=== PATIENT | female | born 1990 | race African-American/Black ===

== ENCOUNTER 2020-01-25 20:40 | Observation (INO) | payer OTHER, SELFPAY ==
[2020-01-25 21:07] VITALS: BP 121/70; PULSE 83
[2020-01-25 21:15] VITALS: BMI 27.4
[2020-01-25 21:16] VITALS: BP 128/54; PULSE 91
[2020-01-25 21:31] VITALS: BP 122/56; PULSE 87
[2020-01-25 21:49] LABS: Add Urine Microscopic? YES; Appearance Urine Cloudy (Clear); Bacteria Urine Trace /hpf; Bilirubin Urine Negative (Negative); Blood Urine 2+ (Negative); Calcium Oxalate Crystals Urine Present /hpf; Color Urine Yellow (Yellow); Glucose Urine UA Negative (Negative); Ketones Urine Negative (Negative); Leukocyte Esterase Ur 2+ LEU/UL (NEGATIVE); Mucus Urine Rare /lpf; Nitrate Urine Negative (Negative); Protein Urine 2+ mg/dL (Negative); RBC Urine >75 /hpf (0-2); Squamous Epithelial Cell Urine Occasional /hpf (Few); Urobilinogen Urine Negative mg/dL (<2.0); WBC Urine >75 /hpf (0-3)
--- NOTE | 2020-01-25 22:51 | OBADM ---
This patient, Fátima Mae, admitted to the OB room [facility] Post [facility] for observation. Patient/family oriented to hospital policies and general routines including ID bracelet, bed and alarms, visiting hours, pain management, procedures, bathroom and other care routines, personal items, smoking policy, room service/diet, and visiting hours. Patient/Family are encouraged to report perceived risks to care and to ask questions if they do not understand what they are told or what they should do.
--- NOTE | 2020-01-27 11:24 | PM.OBTRLD ---
OB - Triage/Final Diagnosis Visit Information Reason for evaluation: other (UTI) Evaluation Laboratory results: Laboratory Tests 01/25/20 21:37 Urine Color Yellow Urine Appearance Cloudy H Urine pH 6.0 Ur Specific [place] 1.030 Urine Protein 2+ H Urine Glucose (UA) Negative Urine Ketones Negative Ur Blood (Man) 2+ H Urine Nitrate Negative Urine Bilirubin Negative Urine Urobilinogen Negative Ur Leukocyte Esterase 2+ H Urine RBC >75 H Urine WBC >75 H Ur Squamous Epith Cells Occasional Calcium Oxalate Crystal Present Urine Bacteria Trace Urine Mucus Rare
== END 2020-01-25 22:30 | disposition home or self-care (01) ==
PROVIDERS: Admitting Provider Obstetrics & Gynecology; Visit Provider Obstetrics & Gynecology
DX: O23.42 Unspecified infection of urinary tract in pregnancy, second trimester (principal); Z3A.20 20 weeks gestation of pregnancy
CPT/HCPCS: 81001; 87077; 87086; 87088; 87186; G0378; G0379

== ENCOUNTER 2020-03-01 20:05 | Observation (INO) | payer OTHER, SELFPAY ==
[2020-03-01 20:35] VITALS: BP 117/60; PULSE 85
[2020-03-01 20:52] LABS: Add Urine Microscopic? YES; Appearance Urine Clear (Clear); Bacteria Urine Trace /hpf; Bilirubin Urine Negative (Negative); Blood Urine Negative (Negative); Color Urine Yellow (Yellow); Glucose Urine UA Negative (Negative); Ketones Urine Trace mg/dL (Negative); Leukocyte Esterase Ur 2+ LEU/UL (Negative); Mucus Urine Moderate /lpf; Nitrate Urine Negative (Negative); Protein Urine Negative (Negative); Squamous Epithelial Cell Urine Moderate /hpf (Few); Uric Acid Crystals Urine Present /hpf; Urobilinogen Urine Negative mg/dL (<2.0); WBC Urine 16-20 /hpf
[2020-03-01 20:53] LABS: Specific Grav Ur 1.033 (1.001-1.035)
--- NOTE | 2020-03-08 08:05 | PM.OBTRLD ---
OB - Triage/Final Diagnosis Evaluation Laboratory results: Laboratory Tests 03/01/20 20:43 Urine Color Yellow Urine Appearance Clear Urine pH 5.0 Ur Specific [place] 1.033 Urine Protein Negative Urine Glucose (UA) Negative Urine Ketones Trace Ur Blood (Man) Negative Urine Nitrate Negative Urine Bilirubin Negative Urine Urobilinogen Negative Leukocyte Esterase Rfl 2+ H Urine WBC 16-20 H Ur Squamous Epith Cells Moderate H Uric Acid Crystals Present H Urine Bacteria Trace Hyaline Casts 1-2 Urine Mucus Moderate H Final Diagnosis (1) Cramping affecting , antepartum: Code(s): O26.899 - Other specified related conditions, unspecified trimester; R10.9 - Unspecified abdominal pain Status: Acute
== END 2020-03-01 20:15 | disposition home or self-care (01) ==
PROVIDERS: Admitting Provider Obstetrics & Gynecology; Visit Provider Obstetrics & Gynecology
DX: O26.892 Other specified pregnancy related conditions, second trimester (principal); R10.9 Unspecified abdominal pain; Z3A.25 25 weeks gestation of pregnancy
CPT/HCPCS: 81001; 87086; 87088; G0378; G0379

== ENCOUNTER 2020-05-26 15:22 | Outpatient (RCR) | payer OTHER, SELFPAY ==
[2020-04-26 15:15] VITALS: BP 113/63; PULSE 85
[2020-05-03 16:50] VITALS: PULSE 75
[2020-05-10 15:02] VITALS: BP 109/52; PULSE 88
--- NOTE | ~2020-05-26 | US_ITS ---
EXAMINATION: US OB BPP wo non-stress EXAM DATE: 05/26/2020 15:59 INDICATION: Decreased movement. 3rd trimester. TECHNIQUE: Pelvic obstetrical transabdominal sonogram was performed by a technologist. There are mu ltiple grayscale and Doppler images available for interpretation. There are no earlier studies of th is gestation for comparison. FINDINGS: There is a single fetus identified in vertex presentation with a heart rate of 136 beats pe r minute. The placenta is located in the anterior position. There is no sonographic evidence of retr oplacental hemorrhage identified. BIOPHYSICAL PROFILE (performed by the technologist) breathing (30 sec sustained breathing in 30 minutes): 2 out of 2 movement (3 gross body movements in 30 minutes): 2 out of 2 tone (one episode of uqnjwom-ihofbszxw-cvoigxq limb movement): 2 out of 2 Amniotic fluid pocket (2 cm): 2 out of 2 Total score: 8 out of 8 IMPRESSION: 1. Single fetus with heart rate of 136 bpm. 2. Normal biophysical profile score of 8 out of 8. Reviewed, dictated and finalized at location A.
--- NOTE | ~2020-05-26 | US_ITS ---
US OB BPP wo non-stress DATE: 04/26/2020 15:21 INDICATION: Maternal obesity TECHNIQUE: Real-time imaging, Doppler analysis, color flow imaging COMPARISON: None FINDINGS: Live deleon intrauterine gestation, fetus in vertex presentation. Anterior placenta. Fet al heart rate of 142 bpm. BIOPHYSICAL PROFILE reported by optical technician: breathin out of 2 movement: 2 out of 2 tone: 2 out of 2 Amniotic fluid pocket: 2 out of 2 Total score: 8 out of 8 IMPRESSION: Normal biophysical profile score of 8 out of 8 Reviewed, dictated and finalized at Location A. Reviewed, dictated and finalized at location A.
--- NOTE | ~2020-05-26 | US_ITS ---
EXAMINATION: US OB BPP wo non-stress DATE: 05/10/2020 15:22 INDICATION: Obesity, third trimester TECHNIQUE: Real-time pelvic ultrasound was performed. The interpreting radiologist was not present fo r the study. COMPARISON: 05/03/2020 FINDINGS: There is a single living fetus in vertex presentation. The placenta is anterior. heart rate is 141 beats per minute (bpm). Biophysical profile performed by the technologist: breathing (30 sec sustained breathing in 30 minutes): 2 out of 2 movement (3 gross body movements in 30 minutes): 2 out of 2 tone (one episode of usvarxv-dzeypjtsi-jbxqxbz limb movement): 2 out of 2 Amniotic fluid pocket (2 cm): 2 out of 2 Total score: 8 out of 8 IMPRESSION: 1. Single living fetus in vertex presentation. 2. Biophysical profile 8 out of 8. Reviewed, dictated and finalized at location B.
--- NOTE | ~2020-05-26 | US_ITS ---
US OB BPP wo non-stress DATE: 05/03/2020 16:48 INDICATION: Obesity TECHNIQUE: Real-time imaging and Doppler analysis COMPARISON: 04/26/2020 obstetrical ultrasound with biophysical profile FINDINGS: Live [place] intrauterine gestation, fetus in longitudinal lie, vertex presentation. Feta l heart rate 137 bpm. The placenta is anterior. Subjectively normal amount of amniotic fluid. BIOPHYSICAL PROFILE reported by dental technician apprentice: breathin out of 2 movement: 2 out of 2 tone: 2 out of 2 Amniotic fluid pocket: 2 out of 2 Total score: 8 out of 8 IMPRESSION: Normal biophysical profile score of 8 out of 8 Reviewed, dictated and finalized at Location A. Reviewed, dictated and finalized at location B.
[2020-05-26 15:45] VITALS: BP 128/73
== END 2020-06-06 07:12 | disposition home or self-care (01) ==
LOC: ANHOBOP 15:22
PROVIDERS: Visit Provider Obstetrics & Gynecology
DX: O99.213 Obesity complicating pregnancy, third trimester (principal); E66.9 Obesity, unspecified; Z3A.33 33 weeks gestation of pregnancy; Z3A.34 34 weeks gestation of pregnancy; Z3A.35 35 weeks gestation of pregnancy; O36.8130 Decreased fetal movements, third trimester, not applicable or unspecified; Z3A.37 37 weeks gestation of pregnancy
CPT/HCPCS: 59025; 76819

== ENCOUNTER 2020-06-05 19:52 | Inpatient (IN) | payer OTHER, SELFPAY ==
[2020-06-05] VITALS (37 sets, daily range): BP systolic 60–140; BP diastolic 48–79; PULSE 31–135; TEMP 36.9; O2SAT 99–100; BMI 51.4
--- NOTE | 2020-06-05 19:52 | LDADM ---
This patient, Fátima Mae, was admitted to Labor/Delivery/Recovery 106 on 06/05/20 at 19:52. Plans for labor, pain management and were discussed with patient. Patient/family oriented to hospital policies and general routines including ID bracelet, bed and alarms, visiting hours, pain management, procedures, bathroom and other care routines, personal items, smoking policy, room service/diet and guest tray routines, infant security routines, and visiting hours. Patient/Family are encouraged to report perceived risks to care and to ask questions if they do not understand what they are told or what they should do. See OBIX for further documentation.
[2020-06-05] MEDS: LACTATED RINGERS 1,000 ML 125 ML IV CONT ×3 (21:24→23:59)
--- NOTE | 2020-06-05 21:24 | WPDANESEPPF ---
Anes - Initial Pre Proc Eval Procedure: labor epidural Date/Time: 06/05/20 21:24 Surgeon: Praneeth Koch DO Pre Op Diagnosis: labor pain Pre Op Diagnosis: Contractions Patient Data Age: 29 Gender: F Height: Weight: Last Vital Signs Pulse 91 06/05/20 21:16 BP 140/68 06/05/20 21:16 Allergies Allergy/AdvReac Type Severity Reaction Status Date / Time No Known Allergies Allergy Mild Verified 05/17/11 18:34 Home Medications Medication Instructions Recorded Confirmed Type PNV cmb#95-ferrous fumarate-FA 1 tablet PO DAILY 01/25/20 05/23/20 History [] Patient hx anesthesia problems: none Family hx anesthesia problems: none PMFSH Family History Family History Other No pertinent family history Social History Social History Substance use: never Gender identity (if verbalized by the patient): Female Spiritual care concerns: No Anes - Eval Final PreProcedure Day of Procedure 06/05/20 21:24 Patient weight: obese Heart: regular rate and rhythm Lungs: clear to auscultation and normal air movement Airway: Mallampati scale class II Neurological: alert and oriented ASA classification: II Anesthetic plan: proceed Anesthesia type and monitoring: regional epidural and standard monitoring Informed Consent: The patient's anesthetic plan and its attendant risks and benefits were discussed with the patient/family/POA. Questions were solicited and answers provided to the satisfaction of the patient/family/POA.
[2020-06-05] MEDS: AMPICILLIN 2 GM/NS 100 ML 2 GM/100 ML BAG IVPB (21:25)
--- NOTE | 2020-06-05 21:55 | PM.IMHP ---
H&P: HPI History of Present Illness Date/Time: 06/05/20 21:55 Chief complaint: Contractions Narrative: Fátima Mae is a 29 year old female at 38w5d presenting with contractions. She states she has been janis since 0400 in the morning. painful and regular contractions. Denies leaking of water or any bleeding. Good movement. No questions or concerns today. On initial exam in triage, she was 4 cm and progressed to 6cm. Review of Systems Constitutional: Constitutional: Reports no additional constitutional complaints Cardiovascular: Cardiovascular: Reports no additional cardiovascular complaints Respiratory: Respiratory: Reports no additional respiratory complaints Gastrointestinal: Gastrointestinal: Reports no additional gastrointestinal complaints Genitourinary: Genitourinary: Reports no additional female genitourinary complaints Neurologic: Reports system reviewed and no additional complaints, except as documented Psychiatric: Psychiatric: Reports no additional psychiatric complaints [facility] Past Medical History Medical History (Updated 06/05/20 @ 22:00 by Praneeth Koch DO) Obesity Family History Family History Other No pertinent family history Social History Social History Substance use: never Gender identity (if verbalized by the patient): Female Spiritual care concerns: No Meds Home Medications and Allergies Home Medications Medication Instructions Recorded Confirmed Type PNV cmb#95-ferrous fumarate-FA 1 tablet PO DAILY 01/25/20 05/23/20 History [] Allergies Allergy/AdvReac Type Severity Reaction Status Date / Time No Known Allergies Allergy Mild Verified 05/17/11 18:34 Vital Signs Vital Signs - 24 hr 06/05/20 21:16 06/05/20 21:35 06/05/20 21:41 Pulse Rate 91 96 Blood Pressure 140/68 139/79 Pulse Oximetry 100 06/05/20 21:43 06/05/20 21:45 06/05/20 21:46 Pulse Rate 95 135 H Blood Pressure 124/58 L 108/73 Pulse Oximetry 100 06/05/20 21:47 06/05/20 21:49 06/05/20 21:50 Pulse Rate 99 91 Blood Pressure 135/49 L 135/58 L Pulse Oximetry 99 06/05/20 21:51 06/05/20 21:52 06/05/20 21:54 Pulse Rate 95 101 H Blood Pressure 119/54 L 122/58 L Pulse Oximetry 100 Exam Const: General: comfortable and no acute distress Resp: Effort & Inspection: normal respiratory effort Cardio: Rate: regular rate GI: Other: gravid Skin: General skin exam: normal color Neuro: Speech: normal speech Psych: Mental Status: mental status grossly normal Affect: normal affect Assessment and Plan Assessment and plan (1) Term : Code(s): Z34.90 - Encounter for supervision of normal , unspecified, unspecified trimester Status: Acute (2) Active labor at term: Status: Acute Assessment and Plan: Admit to L&D Pain management - epidural GBS positive - prophylaxis (3) Obesity affecting : Code(s): O99.210 - Obesity complicating , unspecified trimester Status: Acute
[2020-06-05 22:07] LABS: Basophils Percent Auto 0.3 % (0.2-1.2); Eosinophils Absolute Auto 0.2 K/mm3 (0-0.3); Eosinophils Percent Auto 1.8 % (0-4.4); Hematocrit 35.4 % (37.0-47.0); Hemoglobin 11.7 g/dL (12.0-15.0); Immature Granulocyte Absolute 0.07 K/mm3 (0.00-0.031); Immature Granulocyte Percent A 0.6 % (0-0.5); Lymphocytes Absolute Auto 2.14 K/mm3 (0.9-3.2); Lymphocytes Percent Auto 17.2 % (18.3-44.2); Mean Corpuscular HGB Conc 33.1 g/dl (32-36); Mean Corpuscular Hemoglobin 27.1 pg (26-34); Mean Corpuscular Volume 82.1 fl (80-100); Monocytes Absolute Auto 0.8 K/mm3 (0.1-0.6); Monocytes Percent Auto 6.1 % (2.6-8.5); Neutrophils Absolute Auto 9.2 K/mm3 (1.3-6.7); Platelet Count Result 260 k/mm3 (150-375); Red Blood Count 4.31 M/mm3 (4.2-5.4); Red Cell Distribution Width 14.1 % (11.5-14.5); White Blood Count 12.4 K/mm3 (4.5-10.0)
[2020-06-05 23:13] LABS: HIV 1/2 Ab P24 Ag Result Negative (Negative)
[2020-06-06] VITALS (86 sets, daily range): BP systolic 90–137; BP diastolic 44–81; PULSE 62–114; RESP 13–14; TEMP 36.8–37.9; O2SAT 95–100
[2020-06-06] MEDS: AMPICILLIN 1 GM/NS 50 ML 1 GM/50 ML BAG IVPB (01:28)
[2020-06-06] MEDS: FAMOTIDINE 20 MG TABLET PO (01:44)
[2020-06-06] MEDS: OXYTOCIN 30 UNITS/NS 500 ML 30 UNITS/500 ML BAG 999 UNITS IV CONT (03:14)
--- NOTE | 2020-06-06 03:21 | PM.OBPRVD ---
OB - Delivery Note Procedure Delivery date: 06/06/20 Procedure: Normal spontaneous vaginal delivery Narrative: Once she was noted to be complete and ready to push, the labor bed was broken down and legs were placed in stirrups for support. With contractions and maternal efforts, the presented in OA position. The head was delivered. Checked for nuchal cord, no nuchal cord noted. Gentle downward traction was applied and the anterior shoulder delivered without issues, followed by the posterior shoulder and rest of the body. was vigorous and crying, so delayed cord clamping of approximately 1 minute was performed. The cord was clamped and cut. Cord gasses collected. Placenta was delivered spontaneously. IV oxytocin administered and fundal massage applied. Exam was performed to identify any lacerations. No lacerations. Fundal massage applied. Good hemostasis noted. Patient tolerated the procedure well. All instrument and sponge counts were correct at the end of the procedure. Baby Date of : 06/06/20 Time of : 03:07 Weeks of gestation at delivery: 38 Infant gender: Male Weight (pounds): 7 Weight (ounces): 3 presentation: vertex position: Right Occiput Anterior Placenta delivery description: Spontaneous cord vessel description: 3 Vessels score one minute: 9 score five minutes: 9
--- NOTE | 2020-06-06 03:26 | ECG_ITS ---
Measurements Intervals [place] Rate: 80 P: -2 NH: 157 QRS: 44 QRSD: 94 T: 15 QT: 354 QTc: 410 Interpretive Statements SINUS RHYTHM WITH SINUS ARRHYTHMIA NORMAL ECG Electronically Signed On 06-06-2020 7:02:04 CDT by Mickey Alan D.O.
--- NOTE | 2020-06-06 03:30 | PC.NURSE ---
0330 pt heart rate dropping down into the 30's. pt states she feels sleepy but otherwise feels fine. Dr. Koch at beside. 0335 Dr. Koch order EKG.
[2020-06-06 03:36] LABS: Glucose Point of Care 96 (65-105)
[2020-06-06] MEDS: OXYTOCIN 30 UNITS/NS 500 ML 30 UNITS/500 ML BAG 125 UNITS IV CONT (03:46)
[2020-06-06] MEDS: WITCH HAZEL 40 PADS 1 PAD TOPICAL (05:06)
[2020-06-06] MEDS: BENZOCAINE 20% AER SPR (*SP) 56 GM CAN 1 SPRAY TOPICAL (05:07)
[2020-06-06] MEDS: IBUPROFEN 600 MG TABLET PO ×3 (05:07→21:56)
[2020-06-06] MEDS: ACETAMINOPHEN 325 MG TABLET 650 MG PO (06:35)
[2020-06-06 09:51] LABS: Rapid Plasma Reagin Non-Reactive (NonReactive)
[2020-06-06] MEDS: MULTIVIT/MIN/PREN/FOL AC/IRON TABLET 1 TAB PO (10:09)
[2020-06-06] MEDS: TETANUS,DIPHTHERIA,AC PERTUSSIS ADULT (0.5 ML) BOOSTRIX IM (13:11)
[2020-06-07 05:31] LABS: Hematocrit 32.8 % (37.0-47.0); Hemoglobin 10.6 g/dL (12.0-15.0)
[2020-06-07] MEDS: IBUPROFEN 600 MG TABLET PO ×3 (05:32→19:42)
[2020-06-07 07:50] VITALS: BP 114/80; PULSE 72; RESP 18; TEMP 36.2; O2SAT 100
--- NOTE | 2020-06-07 08:04 | WPDANLDPN2 ---
Anes-Prog Note L&D Date/Time: 06/07/20 08:04 Comfortable throughout: labor and delivery Neuraxial method: epidural Epidural/Spinal procedure site: clean & non-tender Neuro status: Neuro function grossly intact. Cardiovascular status: normal Respiratory status: normal Airway patency: baseline Mental status: baseline Post-Op hydration status: normal Vital Signs: Last Vital Signs Temp 36.8 C 06/06/20 19:50 Pulse 62 06/06/20 19:50 Resp 14 06/06/20 19:50 BP 116/68 06/06/20 19:50 Pulse Ox 100 06/06/20 19:50 Post-procedural complaints: none Patient feedback: Patient satisfied with anesthetic care.
[2020-06-07] MEDS: DOCUSATE SODIUM 100 MG CAPSULE PO (09:23)
[2020-06-07] MEDS: MULTIVIT/MIN/PREN/FOL AC/IRON TABLET 1 TAB PO (09:23)
[2020-06-07] MEDS: POLYSACCHARIDE IRON COMPLEX 150 MG CAPSULE PO (09:23)
--- NOTE | 2020-06-07 13:23 | P.PNOB_ITS ---
OB - PN: Subj Subjective Date/time seen: 06/07/20 13:23 PPD# 1 Fátima reports doing well today. She reprots the ibuprofen/tylenol wasn't helping with her pain, now resolved w/ norco. 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 She is tolerating regular diet. She is ambulating. She is voiding and passing flatus. She is breast feeding. She desires her son to get circumcised. She denies N/V, fever, chills, CP, SOB, MATIAS, vision changes, dizziness or palpitations. OB - PN: Obj Data Labs CBC & Chem 7: 06/07/20 05:25 Labs: Laboratory Results - last 24 hr 06/07/20 05:25 Hgb 10.6 L Hct 32.8 L OB - PN A/P Assessment and Plan (1) Normal vaginal delivery: Code(s): O80 - Encounter for full-term uncomplicated delivery Status: Acute Plan day: 1 Plan: routine care and discharge home (tomorrow) Comments: - f/u in [address] Koch Time Spent With Patient Time: Total time spent is greater than 50% in coordination of care (as documented) at patient's floor/unit and/or counseling patient: Review of Systems Review of Systems: All systems reviewed & are unremarkable except as noted in HPI and below (HPI) Exam Const: General: comfortable, no acute distress, alert and awake Orientation /consciousness: patient oriented x3 Resp: Effort & Inspection: normal respiratory effort Auscultation: clear to auscultation bilaterally Cardio: Rate: regular rate GI: Auscultation: normal bowel sounds Other: obese, soft, nontender : Other: fundus firm at umbilicus Psych: Appearance: grossly normal Affect: normal affect Attitude: cooperative Judgement: Good judgement present (Psych)
--- NOTE | 2020-06-07 13:30 | PC.NURSE ---
Consult with pt., offering assist with . Mother reports is eagerly latching without difficulties or discomfort. is behind out required output, requesting mother call out next feeding for observation of feeding. Reviewed feeding cues, frequencies, duration of feedings, feeding elimination flow sheet, and signs of adequate intake. Demonstrated stimulation techniques to wake for feeding. Discussed stimulating while feeding to keep awake and effectively feeding for increased intake and to assist with maintaining deep latch.
--- NOTE | 2020-06-07 13:47 | PC.NURSE ---
Patient instructed on viewing the discharge video Mother & Baby Care, The First Two Weeks . Patient was given the opportunity and encouraged to ask questions. Patient verbalized understanding of information shared and has been given the mother/baby guide for home reference.
--- NOTE | 2020-06-07 15:38 | PC.NURSE ---
Approx. at 1220, called to patient room, mother is requesting FOB be removed from the room. Requested FOB to leave as mother has requested, he asked if he had to leave. Reviewed it is the patients choice. FOB left room voluntarily with no issue.
[2020-06-07 19:45] VITALS: BP 109/58; PULSE 80; RESP 16; TEMP 36.1; O2SAT 100
[2020-06-08] MEDS: IBUPROFEN 600 MG TABLET PO ×2 (01:22→08:46)
--- NOTE | 2020-06-08 08:00 | PC.NURSE ---
PT introductions made and plan of care discussed per post , pain management, breast feeding, daily care activities and pending discharge to home. PT verbalized understanding of such care.
[2020-06-08 08:45] VITALS: PULSE 82; RESP 18; O2SAT 100
[2020-06-08] MEDS: DOCUSATE SODIUM 100 MG CAPSULE PO (08:45)
[2020-06-08] MEDS: MULTIVIT/MIN/PREN/FOL AC/IRON TABLET 1 TAB PO (08:45)
--- NOTE | 2020-06-08 08:58 | PC.NURSE ---
Patient was given the opportunity to view the discharge video Mother & Baby Care, The First Two Weeks and to ask questions. Patient declined viewing the video and has been given the mother/baby guide for home reference.PT is downloading the video to a device to have as a resource at home.
[2020-06-08 09:35] VITALS: BP 133/70; PULSE 82; RESP 18; TEMP 36.3
--- NOTE | 2020-06-08 10:00 | PCDIET ---
Mother is able to independently latch infant with appropriate positioning/alignment. She denies any nipple discomfort, is feeding as required and waking to feed if needed. Infant has had several effective feedings in the past 24 hours, and is currently meeting outcomes for weight, output, jaundice and feeding frequencies. Mother will continue to breast and bottle feed. Stressed to wake to feed every 2-3 hours if and stimulating to keep infant awake and effectively feeding. Reviewed transition to breast milk, signs of adequate intake, and engorgement/relief. Instructed to call ICP if intake/output less than required. Reviewed regular medications mother is taking. Information provided per Leeanne. Reviewed community resources on the [facility] website and in the Mom/Baby guide. Information on outpatient services provided. Mother has no further questions at this time.
--- NOTE | 2020-06-08 13:30 | PC.NURSE ---
PT received discharge instructions per protocol and verbalized understanding of such instructions.
--- NOTE | 2020-06-08 14:03 | PC.NURSE ---
PT discharged to home ambulatory accompanied by both significant other and to waiting car. Follow up appts confirmed
[2020-06-09 11:48] VITALS: BP 128/67; PULSE 83; RESP 20; O2SAT 100
--- NOTE | 2020-06-13 12:05 | PM.OBDSVD ---
DS: Admitting Diagnosis Admitting Diagnosis Admitting Diagnosis: Contractions DS: Discharge Diagnosis Discharge Diagnosis (1) Normal vaginal delivery: Code(s): O80 - Encounter for full-term uncomplicated delivery Status: Acute OB - DS: Summary OB Procedures : None OB Procedures Intrapartum: Spontaneous Vag Delivery OB Procedures: : None Status at Discharge Functional status at discharge: independent ambulation Overall status at discharge: patient is back to baseline Time Spent with Patient Time attestation: Total time spent providing and/or coordinating discharge services: Exam Const: General: comfortable, no acute distress, alert and awake Orientation/consciousness: patient oriented x3 Resp: Effort & Inspection: normal respiratory effort Auscultation: clear to auscultation bilaterally Cardio: Rate: regular rate GI: Auscultation: normal bowel sounds Other: obese, soft, nontender : Other: fundus firm at umbilicus Skin: General skin exam: normal color Neuro: General: patient oriented x3 Speech: normal speech Psych: Appearance: grossly normal Mental Status: mental status grossly normal Affect: normal affect Attitude: cooperative Judgement: Good judgement present (Psych) Discharge Plan Discharge Attending physician on discharge: Brenda Clark Discharging Clinician: Brenda Clark Anticipated Discharge Date/Time: 06/08/20 08:00 Patient Disposition: Home, Self-Care Activity: pelvic rest Diet: regular Discharge Instructions: Education: Mom and Baby Guide Given to: Mother Follow-Up: Call your delivering provider's office for an appointment to be seen in: 1 Week Mom and baby should come to the [facility] for the follow-up appointment. Appointment Date/Time: June 09, 2020 at 11:00 am What to expect at your follow-up visit: Blood Pressure Check Call [phone] if you are unable to keep your appointment time. BREAST CARE: * Wear a snug supportive bra. * For engorgement discomfort: Breast Feeding: * Apply warm moist washcloths * Express milk as needed to relieve engorgement * Wear loose clothing Bottle Feeding: * May apply ice packs * For sore nipples: * Identify correct latch-on * Apply warm moist washcloths before and after nursing * Air dry nipples after nursing * May apply Lansinoh cream to nipples PERINEAL CARE: * Until bleeding stops, use your shaheed bottle after urinating * Change your pad frequently throughout the day * You may take sitz baths several times a day (fill your bathtub with warm water and soak for 20 minutes.) Do NOT bathe in the water * No tub baths until seen by your physician - You may shower ACTIVITY: * Rest as much as possible. * Do not exercise or lift anything heavier than your baby (such as laundry or other children.) * Avoid stairs or driving as much as possible. * Do not put anything into the vagina. No douching, tampons, or sexual activity until seen by physician. NOTIFY PHYSICIAN IF YOU HAVE ANY QUESTIONS OR IF ANY OF THE FOLLOWING SYMPTOMS OCCUR: * If your perineum becomes red, swollen, or more painful than what you have experienced in the hospital. * If your vaginal bleeding becomes foul smelling. * If your vaginal bleeding becomes more heavy than a period or if your bleeding changes from pink to bright red. However, you may pass an occasional walnut-sized clot once or twice for the first week . * If you experience a sharp, shooting pain in you calves. * If you discover a hard, reddened area on your breast or if you experience flu-like symptoms. * If you have a fever of 100.4 or greater DIET: * Eat regular, well-balanced meals. * Drink plenty of fluids daily. If , drink to thirst. Patient Instructions: Antibiotic Form Stand Alone Forms: General Discharge In
== END 2020-06-08 14:03 | disposition home or self-care (01) | DRG 560 ==
LOC: ANHLDR 21:21 → ANHOB2 06-07 13:29 → ANHLDR 06-09 09:47 → ANHOB2 06-09 09:47
PROVIDERS: Admitting Provider Obstetrics & Gynecology; Visit Provider Obstetrics & Gynecology
DX: O99.214 Obesity complicating childbirth (principal); Z37.0 Single live birth; Z3A.38 38 weeks gestation of pregnancy; E66.9 Obesity, unspecified; O36.8330 Maternal care for abnormalities of the fetal heart rate or rhythm, third trimester, not applicable or unspecified; O99.824 Streptococcus B carrier state complicating childbirth
CPT/HCPCS: 36415; 85014; 85018; 85025; 86592; 86703; 86850; 86900; 86901; 90715; 93005; A9270; G0432; J0290; J2590; J2795; J7120

== ENCOUNTER 2025-09-19 10:44 | Emergency (ER) | payer SELFPAY ==
--- NOTE | ~2025-09-19 | XR_ITS ---
Examination: XR knee LT min 4V Clinical History: injury Comparison: None Technique: 4 views left knee Findings/impression: 1. No fracture, dislocation, or effusion left knee. Reviewed, dictated and finalized at location R. LAINT ANALYST
[2025-09-19 10:45] VITALS: BP 132/45; PULSE 79; RESP 16; TEMP 36.9; O2SAT 100
--- OUTSIDE RECORDS SUMMARY | 2025-09-19 10:47 | XMS_ITS | Data Portability ---
Author Organization [facility] Address [address] [place] [address] Assessment No assessment recorded. Plan of Treatment Reminders Order Date Submit Date Provider Last Modified By Organization Details Last Modified Time Details Appointments None recorde d. Lab cytolog y report, thin prep, smear or scrapin g, cervica l or vaginal - brush and broom 2024 025 [facility], [address], [place], [address], 5 16:23:13 lh + FSH, serum 2018 019 [facility] [facility] (Centralized Electronic Ordering - All Locations), Patient Can Go To The Location Of Their Choice, 05:08:56 dhea-granados lfate, serum 2018 019 [employer] [facility] (Centralized [facility] Ordering - All Locations), Patient Can Go To The Location Of Their Choice, 05:08:28 testost erone, total, serum 2018 019 [employer] [facility] (Centralized Electronic Ordering - All Locations), Patient Can Go To The Location Of Their Choice, 05:08:00 CMP, serum or plasma 2018 019 [employer] [facility] (Centralized Electronic Ordering - All Locations), Patient Can Go To The Location Of Their Choice, 05:10:45 lipid panel, serum 2018 [facility] (Centralized Electronic Ordering - All Locations), Patient Can Go To The Location Of Their Choice, 05:10:05 TSH, ultra-s ensitiv e, serum 2018 [facility], [address] [facility] [facility], [place], [address], 05:07:06 HbA1c (hemogl obin A1c), blood 2018 [facility], [address] [facility], [address], [place], [address], 05:09:26 pregnan cy test, urine [facility], Internal Use Only DO Not Attach Compendium DO Not Attach Compendium, Do Not Delete/merge, 17:11:12 urinaly sis, dipstic k 2018 [facility], Internal Use Only DO Not Attach Compendium DO Not Attach Compendium, Do Not Delete/merge, 17:11:12 bacteri al vaginos is panel, vaginal 2018 [employer] [facility] (Centralized Electronic Ordering - All Locations), Patient Can Go To The Location Of Their Choice, 16:08:29 culture , vaginal /rectal , strepto coccus group B 2018 [employer] [facility] (Centralized Electronic Ordering - All Locations), Patient Can Go To The Location Of Their Choice, 16:08:32 CT + NG + TV, DNA, urine/s wab 2018 [employer] [facility], [address], [place], [address], 9 20:08:06 bacteri al vaginos is + vaginit is panel, vaginal - Z11.3, Z20.0 2017 018 [facility], [address] [facility], [address], [place], [address], 8 14:13:16 HSV (1+2) DNA, qual, PCR, unspeci fied specime n - Z11.3, Z20.2 2017 018 [facility], [address] [facility], [address], [place], [address], 8 14:13:16 culture , vaginal /rectal , strepto coccus group B - Z11.3, Z20.2 2017 018 [facility], [address] [place] [address], [address], [place], [address], 8 14:13:17 pregnan cy test, urine 2017 018 [facility] In-Office Order, Internal Use Only DO Not Attach Compendium DO Not Attach Compendium, Do Not Delete/merge, [id number] 8 14:48:58 urinaly sis, dipstic k 2017 018 [facility] In-Office Order, Internal Use Only DO Not Attach Compendium DO Not Attach Compendium, Do Not Delete/merge, [id number] 8 14:48:58 Referral None recorde d. Procedures None recorde d. Surgeries tubal ligatio n (SURG) 2017 018 [email or web address] Not available 8 16:17:12 Imaging None recorde d. Medication Orders metform in 500 mg tablet 2018 019 [facility], [address] [place], [address], 5 14:32:15 multivi tamin tablet 2018 019 [facility], [address] [place] [address], [address], 5 14:32:34 calcium 600 mg (as carbona te)-vit sevilla D3 20 mcg (800 unit) tablet 2018 019 [facility], [address] [place] [address], [address], 5 14:26:52 L norgest /E estradi ol-E estrad 0.15 mg-30 mcg (84)/10 mcg(7) tabs,3m os 2018 019 [facility], [address] [place] [address], [address], 5 14:32:11 Lo Loestri n Fe 1 mg-10 mcg (24)/10 mcg (2) tablet 2018 019 [facility], [address] [place] [address], [address], 9 10:44:38 calcium 600 mg (as carbona te)-vit sevilla D3 20 mcg (800 unit) tablet 2018 019 [facility], [address] [place] [address], [address], 5 14:26:52 multivi tamin tablet [address] [place] [address] Pharmacy [address], [address] [place] [address], [address], 5 14:32:34 calcium 600 mg (as carbona te)-vit sevilla D3 20 mcg (800 unit) tablet 2017 018 [facility], [address] [place] [address], [address], 5 14:26:52 multivi tamin tablet 2017 018 [facility], [address] [place] [address], [address], 5 14:32:34 flucona zole 150 mg tablet 2017 018 [facility], [address] [place] [address], [address], 9 16:16:03 ceftria xone 500 mg solutio n for injecti on 2017 018 [facility] Not available 9 16:15:56 metroni dazole 500 mg tablet 2017 [facility], [address] [place] [address], [address], 5 14:32:16 azithro mycin 250 mg tablet 2017 018 [facility], [address] [place] [address], [address], 9 16:15:52 Patient TargetsNo targets recorded. Patient Instructions Encounter Date Encounter Id Patient Instructions Last Modified By Organization Details Last Modified Time 06/19/2018 [id number] bacterial vaginosis: care instructions mwasserman Not available 06/19/2018 18:46:03 vaginal yeast infection: care instructions mwasserman Not available 06/19/2018 18:46:03 10/15/2018 [id number] IUD removal: care instructions mwasserman Not available 10/15/2018 16:54:02 08/26/2019 [id number] When You Want to Lose Weight: Care Instructions mwasserman Not available 08/26/2019 22:26:55 Reason for Referral None Reported. Results Created Date Observation Date Name Description Value Unit Range Abnormal Flag Note LastModifiedBy Organization Detail LastModifiedTime 08/26/2008/26/2019 urina lysis , dipst ick Leukocytes Small Not Available In-Offi ce Order Internal Use Only DO Not Attach Compendium DO Not Attach Compendium, Do Not Delete/merge, [id number] 08/26/2019 11:49:14 08/26/20 19 08/26/2019 urina lysis , dipst ick Nitrite negati ve Not Available In-Office Order Internal Use Only DO Not Attach Compendium DO Not Attach Compendium, Do Not Delete/merge, [id number] 08/26/2019 11:49:14 08/26/20 19 08/26/2019 urina lysis , dipst ick Urobilinogen .2 Not Available In-Of fice Order Internal Use Only DO Not Attach Compendium DO Not Attach Compendium, Do Not Delete/merge, [id number] 08/26/2019 11:49:14 08/26/20 19 08/26/2019 urina lysis , dipst ick Protein Negati ve Not Available In-Office Order Internal Use Only DO Not Attach Compendium DO Not Attach Compendium, Do Not Delete/merge, [id number] 08/26/2019 11:49:14 08/26/20 19 08/26/2019 urina lysis , dipst ick pH 6.0 Not Available In-Office Order Internal Use Only DO Not Attach Compendium DO Not Attach Compendium, Do Not Delete/merge, [id number] 08/26/2019 11:49:14 08/26/20 19 08/26/2019 urina lysis , dipst ick Blood Negati ve Not Available In-Office Order Internal Use Only DO Not Attach Compendium DO Not Attach Compendium, Do Not Delete/merge, [id number] 08/26/2019 11:49:14 08/26/20 19 08/26/2019 urina lysis , dipst ick Specific [place] 1.030 Not Available In-Off ice Order Internal Use Only DO Not Attach Compendium DO Not Attach Compendium, Do Not Delete/merge, [id number] 08/26/2019 11:49:14 08/26/20 19 08/26/2019 urina lysis , dipst ick Ketone Negati ve Not Available In-Office Order Internal Use Only DO Not Attach Compendium DO Not Attach Compendium, Do Not Delete/merge, [id number] 08/26/2019 11:49:14 08/26/20 19 08/26/2019 urina lysis , dipst ick Bilirubin Small Not Available In-Offic e Order Internal Use Only DO Not Attach Compendium DO Not Attach Compendium, Do Not Delete/merge, [id number] 08/26/2019 11:49:14 08/26/20 19 08/26/2019 urina lysis , dipst ick Glucose Negati ve Not Available In-Office Order Internal Use Only DO Not Attach Compendium DO Not Attach Compendium, Do Not Delete/merge, [id number] 08/26/2019 11:49:14 04/24/20 18 04/24/2018 urina lysis , dipst ick Leukocytes Modera te Not Available In-Office Order Internal Use Only DO Not Attach Compendium DO Not Attach Compendium, Do Not Delete/merge, [facility] 04/24/2018 11:49:37 04/24/20 18 04/24/2018 urina lysis , dipst ick Nitrite negati ve Not Available In-Office Order Internal Use Only DO Not Attach Compendium DO Not Attach Compendium, Do Not Delete/merge, [facility] 04/24/2018 11:49:37 04/24/20 18 04/24/2018 urina lysis , dipst ick Urobilinogen .2 Not Available In-Of fice Order Internal Use Only DO Not Attach Compendium DO Not Attach Compendium, Do Not Delete/merge, [id number] 04/24/2018 11:49:37 04/24/20 18 04/24/2018 urina lysis , dipst ick Protein 30 Not Available In-Office Order Internal Use Only DO Not Attach Compendium DO Not Attach Compendium, Do Not Delete/merge, [id number] 04/24/2018 11:49:37 04/24/20 18 04/24/2018 urina lysis , dipst ick pH 5.5 Not Available In-Office Order Internal Use Only DO Not Attach Compendium DO Not Attach Compendium, Do Not Delete/merge, [id number] 04/24/2018 11:49:37 04/24/20 18 04/24/2018 urina lysis , dipst ick Blood Large Not Available In-Office Order Internal Use Only DO Not Attach Compendium DO Not Attach Compendium, Do Not Delete/merge, [id number] 04/24/2018 11:49:37 04/24/20 18 04/24/2018 urina lysis , dipst ick Specific [place] 1.030 Not Available In-Off ice Order Internal Use Only DO Not Attach Compendium DO Not Attach Compendium, Do Not Delete/merge, [id number] 04/24/2018 11:49:37 04/24/20 18 04/24/2018 urina lysis , dipst ick Ketone Negati ve Not Available In-Office Order Internal Use Only DO Not Attach Compendium DO Not Attach Compendium, Do Not Delete/merge, [id number] 04/24/2018 11:49:37 04/24/20 18 04/24/2018 urina lysis , dipst ick Bilirubin Small Not Available In-Offic e Order Internal Use Only DO Not Attach Compendium DO Not Attach Compendium, Do Not Delete/merge, [id number] 04/24/2018 11:49:37 04/24/20 18 04/24/2018 urina lysis , dipst ick Glucose Negati ve Not Available In-Office Order Internal Use Only DO Not Attach Compendium DO Not Attach Compendium, Do Not Delete/merge, [id number] 04/24/2018 11:49:37 04/24/20 18 04/24/2018 pregn ann-marie test, urine HCG negati ve Not Available In-Office Order Internal Use Only DO Not Attach Compendium DO Not Attach Compendium, Do Not Delete/merge, [id number] 04/24/2018 11:49:24 06/19/20 18 06/23/2018 bacte rial vagin osis + vagin itis panel , vagin al trich vag by RAFFI NEGATI VE negati ve Not Available [facility] ([facility]) [address] [facility], [place], [address], 06/25/2018 14:13:16 06/19/20 18 06/23/2018 bacte rial vagin osis + vagin itis panel , vagin al chlamydia trachomatis, RAFFI POSITI VE negati ve abnormal Not Available [facility] ([facility]) [address] [facility], [place], [address], 06/25/2018 14:13:16 06/19/20 18 06/23/2018 bacte rial vagin osis + vagin itis panel , vagin al neisseria gonorrhoeae, RAFFI NEGATI VE negati ve Not Available [facility] ([facility]) [address] [place], [address], 06/25/2018 14:13:16 06/19/20 18 06/25/2018 bacte rial vagin osis + vagin itis panel , vagin al atopobium vaginae HIGH - 2 score abnormal Not Available [facility] ([facility]) [address] [facility], [place], [address], 06/25/2018 14:13:16 06/19/20 18 06/25/2018 bacte rial vagin osis + vagin itis panel , vagin al bvab 2 HIGH - 2 score abnormal Not Available [facility] ([facility]) [address] [place], [address], 06/25/2018 14:13:16 06/19/20 18 06/25/2018 bacte rial vagin osis + vagin itis panel , vagin al megasphaera 1 HIGH - 2 score abnormal Calcu late total score by ventura infante the 3 indiv idual bacte rial vagin osis (BV) marke r score s toget her. Total score is inter prete d as follo ws: Total score 0-1: Indic ates the absen ce of BV. Total score 2: Indet ermin ate for BV. Addit ional clini viraj data shoul d be evalu ated to estab true a diagn osis. Total score 3-6: Indic ates the prese nce of BV. This test was devel oped and its perfo rmanc e blas cteri stics deter mined by [facility]. It has not been clear ed or appro azeem by the Food and Drug Admin istra tion. The FDA has deter mined that such clear ance or appro ezio is not neces maile. Not Available [facility] ([facility]) [address] [place], [address], 06/25/2018 14:13:16 06/19/20 18 06/25/2018 bacte rial vagin osis + vagin itis panel , vagin al sarah albicans, RAFFI NEGATI VE negati ve Not Available [facility] ([facility]) [address] [place], [address], 06/25/2018 14:13:16 06/19/20 18 06/25/2018 bacte rial vagin osis + vagin itis panel , vagin al sarah glabrata, RAFFI NEGATI VE negati ve This test was devel oped and its perfo rmanc e blas cteri stics deter mined by [facility]. It has not been clear ed or appro azeem by the Food and Drug Admin istra tion. The FDA has deter mined that such clear ance or appro ezio is not neces maile. Not Available [facility] ([facility]) [address] [facility], [place], [address], 06/25/2018 14:13:16 06/19/20 18 06/25/2018 HSV (1+2) DNA, qual, PCR, unspe cifie d speci men hsv 1 RAFFI NEGATI VE negati ve Not Available [facility] ([facility]) [address] [place], [address], 06/25/2018 14:13:16 06/19/2006/25/2018 HSV (1+2) DNA, qual, PCR, unspe cifie d speci men hsv 2 RAFFI NEGATI VE negati ve Not Available [facility] ([facility]) [address] [place], [address], 06/25/2018 14:13:16 06/19/20 18 06/21/2018 cultu re, vagin al/re ctal, strep tococ cus group B strep gp B RAFFI POSITI VE negati ve abnormal Cente rs for Disea se Contr ol and Preve ntion (CDC) and Ameri can Congr ess of Obste trici ans and Gynec ologi sts (ACOG ) guide lines for preve ntion of perin atal group B strep tococ viraj (GBS) disea se speci fy co-co llect ion of a vagin al and recta l swab speci men to maxim ize sensi tivit y of GBS detec tion. Per the CDC and ACOG, swabb ing both the lower vagin a and rectu m subst antia lly incre ases the yield of detec tion leona red with sampl ing the vagin a alone . Penic illin G, ampic illin , or cefaz ana are indic ated for intra partu m proph ylaxi s of perin atal GBS colon izati on. Refle x susce ptibi lity testi ng shoul d be perfo rmed prior to use of clind amyci n only on GBS isola phong from penic illin -donovan rgic women who are consi dered a high risk for anaph ylaxi s. Treat ment with vanco mycin witho ut addit ional testi ng is warra nted if resis tance to clind amyci n is noted . Not Available [facility] ([facility]) [address] [place], [address], 06/25/2018 14:13:17 10/15/19 19 10/16/2018 CT + NG + TV, DNA, urine /swab chlamydia by RAFFI NEGATI VE negati ve Not Available [facility] ([facility]) [address] [place], [address], 10/16/2018 20:08:06 10/15/1910/16/2018 CT + NG + TV, DNA, urine /swab gonococcus by RAFFI NEGATI VE negati ve Not Available [facility] ([facility]) [address] [place], [address], 10/16/2018 20:08:06 10/15/19 19 10/16/2018 CT + NG + TV, DNA, urine /swab trich vag by RAFFI NEGATI VE negati ve Not Available [facility] ([facility]) [address] [facility] [place], [address], 10/16/2018 20:08:06 08/26/2008/27/2019 CMP, serum or plasm a glucose 75 mg/dL 65-99 Not Available [facility] ([facility]) [address] [facility] [place], [address], 08/27/2019 10:37:36 08/26/2008/27/2019 CMP, serum or plasm a BUN 11 mg/dL 6-20 Not Available [facility] ([facility]) [address] [facility] [place], [address], 08/27/2019 10:37:36 08/26/2008/27/2019 CMP, serum or plasm a creatinine 0.67 mg/dL 0.57-1 .00 Not Available [facility] ([facility]) [address] [facility] [place], [address], 08/27/2019 10:37:36 08/26/20 19 08/27/2019 CMP, serum or plasm a eGFR if nonafricn AM 121 mL/mi n/1.7 3 >59 Not Available [facility] ([facility]) [address] [facility] [place], [address], 08/27/2019 10:37:36 08/26/2008/27/2019 CMP, serum or plasm a eGFR if africn AM 139 mL/mi n/1.7 3 >59 Not Available [facility] ([facility]) [address] [facility] [place], [address], 08/27/2019 10:37:36 08/26/2008/27/2019 CMP, serum or plasm a BUN/creatini ne ratio 16 9-23 Not Available [facility] ([facility]) [address] [facility] [place], [address], 08/27/2019 10:37:36 11/13/20 19 08/27/2019 CMP, serum or plasm a sodium 142 mmol/ L 134-14 4 Not Available [facility] ([facility]) [address] [place], [address], 08/27/2019 10:37:36 08/26/20 19 08/27/2019 CMP, serum or plasm a potassium 4.0 mmol/ L 3.5-5. 2 Not Available [facility] ([facility]) [address] [place], [address], 08/27/2019 10:37:36 08/26/20 19 08/27/2019 CMP, serum or plasm a chloride 103 mmol/ L 96-106 Not Available [facility] ([facility]) [address] [place], [address], 08/27/2019 10:37:36 08/26/20 19 08/27/2019 CMP, serum or plasm a carbon dioxide, total 23 mmol/ L 20-29 Not Available [facility] ([facility]) [address] [place], [address], 08/27/2019 10:37:36 08/26/20 19 08/27/2019 CMP, serum or plasm a calcium 9.8 mg/dL 8.7-10 .2 Not Available [facility] ([facility]) [address] [place], [address], 08/27/2019 10:37:36 08/26/2008/27/2019 CMP, serum or plasm a protein, total 7.3 g/dL 6.0-8. 5 Not Available [facility] ([facility]) [address] [place], [address], 08/27/2019 10:37:36 08/26/2008/27/2019 CMP, serum or plasm a albumin 4.5 g/dL 3.5-5. 5 Not Available [facility] ([facility]) [address] [place], [address], 08/27/2019 10:37:36 08/26/20 19 08/27/2019 CMP, serum or plasm a globulin, total 2.8 g/dL 1.5-4. 5 Not Available [facility] ([facility]) [address] [facility] [place], [address], 08/27/2019 10:37:36 08/26/20 19 08/27/2019 CMP, serum or plasm a A/G ratio 1.6 1.2-2. 2 Not Available [facility] ([facility]) [address] [facility] [place], [address], 08/27/2019 10:37:36 08/26/20 19 08/27/2019 CMP, serum or plasm a bilirubin, total 0.3 mg/dL 0.0-1. 2 Not Available [facility] ([facility]) [address] [place], [address], 08/27/2019 10:37:36 08/26/20 19 08/27/2019 CMP, serum or plasm a alkaline phosphatase 75 IU/L 39-117 Not Available [facility]) [address] [place], [address], 08/27/2019 10:37:36 08/26/20 19 08/27/2019 CMP, serum or plasm a AST (SGOT) 14 IU/L 0-40 Not Available [facility] ([facility]) [address] [place], [address], 08/27/2019 10:37:36 08/26/20 19 08/27/2019 CMP, serum or plasm a ALT (SGPT) 15 IU/L 0-32 Not Available [facility] ([facility]) [address] [place], [address], 08/27/2019 10:37:36 08/26/20 19 08/27/2019 lipid panel , serum cholesterol, total 216 mg/dL 100-19 9 above high normal Not Available [facility] ([facility]) [address] [facility], [place], [address], 08/27/2019 10:37:37 08/26/20 19 08/27/2019 lipid panel , serum triglyceride s 74 mg/dL 0-149 Not Available [facility] ([facility]) [address] [facility] [place], [address], 08/27/2019 10:37:37 08/26/20 19 08/27/2019 lipid panel , serum HDL cholesterol 98 mg/dL >39 Not Available [facility] ([facility]) [address] [facility] [place], [address], 08/27/2019 10:37:37 08/26/20 19 08/27/2019 lipid panel , serum VLDL cholesterol viraj 15 mg/dL 5-40 Not Available [facility] ([facility]) [address] [place], [address], 08/27/2019 10:37:37 08/26/20 19 08/27/2019 lipid panel , serum LDL cholesterol calc 103 mg/dL 0-99 above high normal Not Available [facility] ([facility]) [address] [place], [address], 08/27/2019 10:37:37 08/26/20 19 08/27/2019 lipid panel , serum comment: 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 2 LDL/H DL Ratio Men Women 1/2 Avg.R isk 1.0 1.5 Avg.R isk 3.6 3.2 2X Avg.R isk 6.2 5.0 3X Avg.R isk 8.0 6.1 Not Available [facility] ([facility]) [address] [place], [address], 08/27/2019 10:37:37 08/26/2008/27/2019 lh + FSH, serum LH 9.1 mIU/m L Adult Femal e: Folli cular phase 2.4 - 12.6 Ovula tion phase 14.0 - 95.6 Lutea l phase 1.0 - 11.4 Postm enopa usal 7.7 - 58.5 Not Available [facility] ([facility]) [address] [place], [address], 08/27/2019 10:37:38 08/26/2008/27/2019 lh + FSH, serum FSH 5.7 mIU/m L Adult Femal e: Folli cular phase 3.5 - 12.5 Ovula tion phase 4.7 - 21.5 Lutea l phase 1.7 - 7.7 Postm enopa usal 25.8 - 134.8 Not Available [facility] ([facility]) [address] [place], [address], 08/27/2019 10:37:38 08/26/2008/27/2019 HbA1c (hemo globi n A1c), blood hemoglobin A1C 5.4 % 4.8-5. 6 Predi abete s: 5.7 - 6.4 Diabe phong: >6.4 Glyce abdirashid contr ol for adult s with diabe phong: <7.0 Not Available [facility] ([facility]) [address] [place], [address], 08/27/2019 10:37:38 08/26/2008/27/2019 dhea- sulfa te, serum DHEA-sulfate 306.4 ug/dL 84.8-3 78.0 Not Available [facility] ([facility]) [address] [place], [address], 08/27/2019 10:37:39 08/26/2008/27/2019 testo stero ne, total , serum testosterone , serum 42 NG/dL 8-48 Not Available [facility] ([facility]) [address] [place], [address], 08/27/2019 10:37:39 08/26/2008/27/2019 TSH, ultra -sens itive , serum TSH 2.280 uIU/m L 0.450- 4.500 Not Available [facility] ([facility]) [address] [place], [address], 08/27/2019 10:37:40 08/26/20 19 08/28/2019 bacte rial vagin osis panel , vagin al atopobium vaginae High - 2 score abnormal Not Available [facility] ([facility]) [address] [place], [address], 08/29/2019 16:08:29 08/26/20 19 08/28/2019 bacte rial vagin osis panel , vagin al bvab 2 High - 2 score abnormal Not Available [facility] ([facility]) [address] [place], [address], 08/29/2019 16:08:29 08/26/2008/28/2019 bacte rial vagin osis panel , vagin al megasphaera 1 High - 2 score abnormal Calcu late total score by ventura g the 3 indiv idual bacte rial vagin osis (BV) marke r score s toget her. Total score is inter prete d as follo ws: Total score 0-1: Indic ates the absen ce of BV. Total score 2: Indet ermin ate for BV. Addit ional clini viraj data shoul d be evalu ated to estab true a diagn osis. Total score 3-6: Indic ates the prese nce of BV. This test was devel oped and its perfo rmanc e blas cteri stics deter mined by [facility]. It has not been clear ed or appro azeem by the Food and Drug Admin istra tion. The FDA has deter mined that such clear ance or appro ezio is not neces maile. Not Available [facility] ([facility]) [address] [place], [address], 08/29/2019 16:08:29 08/26/20 19 08/28/2019 bacte rial vagin osis panel , vagin al sarah albicans, RAFFI Negati ve negati ve Not Available [facility] ([facility]) [address] [facility], [place], [address], 08/29/2019 16:08:29 08/26/20 19 08/28/2019 bacte rial vagin osis panel , vagin al sarah glabrata, RAFFI Negati ve negati ve This test was [facility] and its perfo rmanc e blas cteri stics deter mined by [facility]. It has not been clear ed or appro azeem by the Food and Drug Admin istra tion. The FDA has deter mined that such clear ance or appro ezio is not neces maile. Not Available [facility] ([facility]) [address] [facility], [place], [address], 08/29/2019 16:08:29 08/26/20 19 08/28/2019 bacte rial vagin osis panel , vagin al chlamydia trachomatis, RAFFI Negati ve negati ve Not Available [facility] ([facility]) [address] [place], [address], 08/29/2019 16:08:29 08/26/20 19 08/28/2019 bacte rial vagin osis panel , vagin al neisseria gonorrhoeae, RAFFI Negati ve negati ve Not Available [facility] ([facility]) [address] [place], [address], 08/29/2019 16:08:29 08/26/20 19 08/29/2019 bacte rial vagin osis panel , vagin al trich vag by RAFFI Positi ve negati ve abnormal Not Available [facility] ([facility]) [address] [place], [address], 08/29/2019 16:08:29 08/26/20 19 08/29/2019 bacte rial vagin osis panel , vagin al hsv 1 RAFFI Negati ve negati ve Not Available [facility] ([facility]) [address] [facility], [place], [address], 08/29/2019 16:08:29 08/26/20 19 08/29/2019 bacte rial vagin osis panel , vagin al hsv 2 RAFFI Negati ve negati ve Not Available [facility] ([facility]) [address] [facility], [place], [address], 08/29/2019 16:08:29 08/26/20 19 08/28/2019 cultu re, vagin al/re ctal, strep tococ cus group B strep gp B RAFFI Positi ve negati ve abnormal Cente rs for Disea se Contr ol and Preve ntion (CDC) and [place]eri can Congr ess of Obste trici ans and Gynec ologi sts (ACOG ) guide lines for preve ntion of perin atal group B strep tococ viraj (GBS) disea se speci fy co-co llect ion of a vagin al and recta l swab speci men to maxim ize sensi tivit y of GBS detec tion. Per the CDC and ACOG, swabb ing both the lower vagin a and rectu m subst antia lly incre ases the yield of detec tion leona red with sampl ing the vagin a alone . Penic illin G, ampic illin , or cefaz ana are indic ated for intra partu m proph ylaxi s of perin atal GBS colon izati on. Refle x susce ptibi lity testi ng shoul d be perfo rmed prior to use of clind amyci n only on GBS isola phong from penic illin -donovan rgic women who are consi dered a high risk for anaph ylaxi s. Treat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
--- OUTSIDE RECORDS SUMMARY | 2025-09-19 10:47 | XMS_ITS | Clinical Summary ---
Author Organization [facility] [employer] [facility] lin Address [address] [place] [address] Care Team Providers Care Cognos Architect Name Role Phone Unavailable Primary Care Provider Unavailabl e Social History Tobacco Use Types Packs/Day Years Used Date Smoking Tobacco: Never Assessed Comments Unknown Sex and Gender Information Value Date Recorded Sex Assigned at Not on file Legal Sex Female 1:42 PM EST Gender Identity Not on file Sexual Orientation Not on file Plan of Treatment Health Maintenance Due Date Last Done Comments Depression: Screening Annual ly using PHQ-2/9 in Adults 18 yrs or above (or HM Modifier)([facility]) 2009 Hepatitis C Virus Infection in Adolescents and Adults: Screening (or Modifier) ([facility]) 2009 SDOH Screening Reminder: Linda kaykaylly for all adults ([facility]) 2009 Tobacco Smoking Cessation: i n Adults excluding Women: Behavioral and Pharmacotherapy Interventions ([facility]) 2009 DTaP/Tdap/Td Vaccines ([facility]) (1 - Tdap) 2010 Cervical Cancer Screenin 1-65 yrs of age (or Modifier) 2012 Cervical Cancer Screening: P ap every 3 yrs pts age 21-65 2012 Cervical Cancer: Pap Screeni ng with Modifier timing ([facility]) 2012 Cervical Cancer: hrHPV alone or with cotesting Pap for Pts 30-65yrs screening every 5yrs ([facility]) 2012 Flu Vaccination: Yearly for ages 18mos through 64 years (or Modifier)([facility]) 05/14/2025 COVID-19 Vaccine Screening: Initial Series and Booster Status ([facility]) (2024- season) 2025 Zoster/Shingles Vaccine Seri es Screening: Adults aged 18+ yrs (or HM Modifiers)([facility]) (1 of 2) 2041 Pneumococcal Vaccination Scr eening: Pts 0-19 & 19-49 yrs of age ([facility]) Aged Out No longer eligible based on patient's age to complete this topic Medical Devices Not on file Insurance [facility]
--- OUTSIDE RECORDS SUMMARY | 2025-09-19 10:47 | XMS_ITS | Clinical Summary ---
Author Organization [facility] Address [address] [place] [address] Care Team Providers Care Battery Assembler Plastic Name Role Phone Jacquelyn Medellin MD Primary Care Provider [phone] Source Comments [facility],non-owned Affiliates and Associated Physician Practices is amultiple site organization consisting of ambulatory clinics and hospital sitesin [place], [place], [place] and [place]. This disclosure is being madepursuant to the Care Everywhere program and may not contain all information available regarding this patient. Last updated 18.[facility] Allergies No known active allergies Medications * Be aware that medications may not be up to date on this document. Alwaysverify current medications with the patient. cyclobenzaprine (FLEXERIL) 10 MG tablet Take 1 Tab by mouth 3 times daily as needed for Muscle Spasms 15 Tab 01/07/2017 Active naproxen (NAPROSYN) 500 MG tablet Take 1 Tab by mouth 2 times daily as needed for Pain 20 Tab 01/07/2017 Active Active Problems Problem Noted Date Diagnosed Date Preventative health care 12/21/2020 Social History Tobacco Use Types Packs/Day Years Used Date Smoking Tobacco: Never Assessed Comments Unknown Sex and Gender Information Value Date Recorded Sex Assigned at Not on file Legal Sex Female 11:37 PM CDT Gender Identity Not on file Sexual Orientation Not on file Last Filed Vital Signs Vital Sign Reading Time Taken Comments Blood Pressure 136/82 01/07/2017 1:35 AM CDT Pulse 88 01/07/2017 1:35 AM CDT Temperature 36.8 C (98.3 F) 01/06/2017 11:42 PM CDT Respiratory Rate 16 01/07/2017 1:35 AM CDT Oxygen Saturation 97% 01/07/2017 1:35 AM CDT Inhaled Oxygen Concentration - - Weight 136.1 kg (300 lb) 01/06/2017 11:42 PM CDT Height 170.2 cm (5' 7) 01/06/2017 11:42 PM CDT Body Mass Index 46.99 01/06/2017 11:42 PM CDT Plan of Treatment Health Maintenance Due Date Last Done Comments HIV SCREENING 2006 HEPATITIS C SCREENING 09/18/2009 DTAP/TDAP/TD VACCINES (1 - Tdap) 2010 HEPATITIS B VACCINE (1 of 3 - 19+ 3-dose series) 2010 HPV VACCINE (1 - 3-dose SCDM series) 2018 DEPRESSION SCREENING 10/14/2024 COVID-19 VACCINE (1 - 2024-2 6 season) 2025 INFLUENZA VACCINE (#1) 2025 ZOSTER VACCINE (1 of 2) 2041 HIB VACCINE Aged Out No longer eligi ble based on patient's age to complete this topic MENINGOCOCCAL (Group B) VACC INE SHARED DECISION-MAKING Aged Out No longer eligibl e based on patient's age to complete this topic MENINGOCOCCAL GROUPS A/C/Y/W VACCINE Aged Out No longer eligible b ased on patient's age to complete this topic PNEUMOCOCCAL VACCINE Aged Out No long er eligible based on patient's age to complete this topic [place] [address] [place] [address] [facility] THIRD ALLIANCE PARTY LIABILITY Republican Liability MEDICAID - PENDING [employer] Care Teams Battery Assembler Plastic Relationship Specialty Start Date End Date Jacquelyn Medellin MD PCP - General 11/14/20
--- OUTSIDE RECORDS SUMMARY | 2025-09-19 11:30 | XMS_ITS | Clinical Summary ---
Author Organization [facility] [employer] [facility] lin Address [address] [place] [address] Care Team Providers Care Airways Operations Specialist Name Role Phone Unavailable Primary Care Provider [...] Adults 18 yrs or above (or HM Modifier)([facility]) 2009 Hepatitis C Virus Infection in Adolescents and Adults: Screening (or Modifier) ([facility]) 2009 SDOH Screening Reminder: Linda kaykaylly for all adults ([facility]) 2009 Tobacco Smoking Cessation: i n Adults excluding Women: Behavioral and Pharmacotherapy Interventions ([facility]) 2009 DTaP/Tdap/Td Vaccines ([facility]) (1 - Tdap) 2010 Cervical Cancer Screenin 1-65 yrs of age (or Modifier) 2012 Cervical Cancer Screening: P ap every 3 yrs pts age 21-65 2012 Cervical Cancer: Pap Screeni ng with Modifier timing ([facility]) 2012 Cervical Cancer: hrHPV alone or with cotesting Pap for Pts 30-65yrs screening every 5yrs ([facility]) 2012 Flu Vaccination: Yearly for ages 18mos through 64 years (or Modifier)([facility]) 05/14/2025 COVID-19 Vaccine Screening: Initial Series and Booster Status ([facility]) (2024- season) 2025 Zoster/Shingles Vaccine Seri es Screening: Adults aged 18+ yrs (or HM Modifiers)([facility]) (1 of 2) 2041 Pneumococcal Vaccination Scr eening: Pts 0-19 & 19-49 yrs of age ([facility]) Aged Out No longer eligible based on patient's age to complete this topic Medical Devices Not on file Insurance [facility]
--- OUTSIDE RECORDS SUMMARY | 2025-09-19 11:30 | XMS_ITS | Clinical Summary ---
Author Organization [facility] Address [address] [place] [address] Care Team Providers Care Senior Operator Name Role Phone Jacquelyn Medellin MD Primary Care Provider [phone] Source Comments [facility],non-owned Affiliates and Associated Physician Practices is amultiple site organization consisting of ambulatory clinics and hospital sitesin [place], [place], [place] and [place]. This disclosure is being madepursuant to the Care Everywhere program and may not contain all information available regarding this patient. Last updated 18.[facility] Allergies No known active allergies Medications * [...] patient's age to complete this topic Insurance [place] [address] [place] [address] [facility] THIRD ALLIANCE PARTY LIABILITY Alliance Party Liability MEDICAID - PENDING [place] [employer] Care Teams Senior Operator Relationship Specialty Start Date End Date Jacquelyn Medellin MD PCP - General 11/14/20
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
[2025-09-19] MEDS: KETOROLAC 30 MG/ML VIAL (*BKC) 15 MG IM (12:06)
--- NOTE | 2025-09-19 15:06 | ED.LOWEXIN ---
HPI - Extremity Injury (Lower) General Chief Complaint: Extremity Injury, Lower Stated Complaint: fall yesterday; L knee pain Time Seen by Provider: 09/19/25 11:11 History of Present Illness HPI Narrative: Patient had a fall yesterday or she accidentally landed on her left knee, has been hurting but she has been able to walk on it. Related Data Home Medications ?Medication ?Instructions ?Recorded ?Confirmed ?Last Taken ?Type vit no.95-ferrous 1 tablet PO DAILY 01/25/20 06/05/20 06/05/20 08:00 History fumarate 28 mg-folic acid 800 mcg tablet () Allergies Allergy/AdvReac Type Severity Reaction Status Date / Time No Known Allergies Allergy Mild Verified 05/17/11 18:34 Review of Systems Review of Systems: All systems reviewed & are unremarkable except as noted in HPI and below PMFSH Past Medical History Medical History (Updated 09/19/25 @ 11:59 by Kimberly Yarbrough MD) Obesity Family History Family History Other No pertinent family history Social History Social History Smoking status: Never smoker Substance use: never Gender identity (if verbalized by the patient): Female Spiritual care concerns: No Exam Narrative: EXAMINATION OF ORGAN SYSTEMS/BODY AREAS: Constitutional: Vital signs per nursing GENERAL:[No acute distress, non-toxic appearing.] HEAD: Normal with no signs of head trauma. EYES: EOMI, conjunctiva normal ENT: Hearing grossly intact LUNGS: Nonlabored breathing. HEART: [Regular rate and rhythm], normal DP pulse ABD: [Soft], [nontender to palpation] EXT: Normal range of motion, some slight tenderness to the left knee, minimal swelling. No deformity SKIN: [No rashes or lesions.] NEURO: [Alert. No gross focal sensory or strength deficits.] PSYCH: Normal affect Course Vital Signs Vital signs: Vital Signs Temperature 98.4 F 09/19/25 10:45 Pulse Rate 79 09/19/25 10:45 Respiratory Rate 16 09/19/25 10:45 Blood Pressure 132/45 L 09/19/25 10:45 Pulse Oximetry 100 09/19/25 10:45 Temperature 98.4 F 09/19/25 10:45 Pulse Rate 79 09/19/25 10:45 Respiratory Rate 16 09/19/25 10:45 Blood Pressure 132/45 L 09/19/25 10:45 Pulse Oximetry 100 09/19/25 10:45 MDM MDM Narrative Medical decision making narrative: Patient presents after falling on her left knee, has been hurting, she is well-appearing here, neurovascular intact, no obvious deformity, normal range of motion. Some slight swelling and tenderness on exam. X-ray negative for acute fracture, discussed with patient, care instructions discussed, she is to follow-up with her doctor and return for any further issues. Differential Diagnosis Differential Diagnosis: Sprain, fracture Discharge Plan Discharge Clinical Impression: Injury of knee Patient Disposition: Home Condition: Stable Instructions: Knee Pain (ED) Additional Instructions: Thankfully xray doesn't show any broken bones. You can continue taking tylenol, use ice on your knee and try to rest and elevate it the next few days. You can follow up with your PCP and come back for any further issues. Patient Language: Swiss Prescriptions: No Action PNV no.95-ferrous fumarate-FA [] 28 mg iron- 800 mcg Tablet 1 tablet PO DAILY acetaminophen [Mapap (acetaminophen)] 325 mg Tablet 650 mg PO Q6H PRN (Reason: Mild Pain (1-3) Or Headache) 10 Days Qty: 30 0RF ibuprofen 600 mg Tablet 600 mg PO Q6H PRN (Reason: Cramping) 10 Days Qty: 30 0RF Follow-up/Referrals: Juan,Dian Malhotra, CORRECTIONAL CLASSIFICATION COUNSELOR [Primary Care Provider, Unknown]
== END 2025-09-19 12:12 | disposition home or self-care (01) ==
PROVIDERS: Emergency Provider Emergency Medicine; PCP Nurse Practitioner Family
DX: S89.92XA Unspecified injury of left lower leg, initial encounter (principal); W18.30XA Fall on same level, unspecified, initial encounter; E66.9 Obesity, unspecified; Z68.33 Body mass index [BMI] 33.0-33.9, adult
CPT/HCPCS: 73564; 96372; 99283; J1885